=== PATIENT | male | born 2000 | race Caucasian/White ===

== ENCOUNTER 2021-11-15 15:28 | Emergency (ER) | payer OTHER ==
[~2021-11-15] VITALS: Ht 188 cm; Wt 74.8 kg
[2021-11-15] MEDS ORDERED: DOXY-443 PO (18:49)
[2021-11-15] MEDS ORDERED: DOXYCYCLINE HYCLATE 100MG TABLET PO ONE (18:50)
[2021-11-15 19:07] VITALS: BP 124/70
== END 2021-11-15 19:08 | disposition home or self-care (01) ==
LOC: M ED 15:28
DX: S91.332A Puncture wound without foreign body, left foot, initial encounter (principal); W45.0XXA Nail entering through skin, initial encounter; Y92.89 Other specified places as the place of occurrence of the external cause; Y99.1 Military activity